=== PATIENT | male | born 1980 | race Caucasian/White ===

== ENCOUNTER 2016-10-15 14:14 | Emergency (ER) | payer MEDICAID ==
[2016-10-15 14:21] VITALS: BP 125/82; PULSE 78; RESP 16; TEMP 96.8; O2SAT 98
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
== END 2016-10-15 14:40 | disposition home or self-care (01) ==
DX: S68.011A Complete traumatic metacarpophalangeal amputation of right thumb, initial encounter (principal); F17.200 Nicotine dependence, unspecified, uncomplicated; W27.0XXA Contact with workbench tool, initial encounter

== ENCOUNTER 2017-05-09 21:18 | Emergency (ER) | payer MEDICAID ==
[2017-05-09 21:25] VITALS: BP 121/82; RESP 16; TEMP 98.1
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
[2017-05-09] MEDS ORDERED: HYDROCODONE/APAP 5/325 TAB PO ONE (22:38)
[2017-05-09] MEDS ORDERED: IBUPROFEN 600 MG TAB PO ONE (23:36)
[2017-05-10 00:08] VITALS: PULSE 70; O2SAT 95
== END 2017-05-10 00:06 | disposition home or self-care (01) ==
DX: S19.9XXA Unspecified injury of neck, initial encounter (principal); F17.200 Nicotine dependence, unspecified, uncomplicated; Y04.8XXA Assault by other bodily force, initial encounter